=== PATIENT | female | born 1960 | race Caucasian/White ===

== ENCOUNTER 2024-11-21 16:11 | Inpatient (IN) | payer MEDICARE, OTHER ==
[~2024-11-21] VITALS: Ht 160 cm; Wt 58.2 kg
--- NOTE | 2024-11-21 16:22 | ELECTROCARDIOGRAPH REPORT ---
[facility] Test Date: 2024-11-21 Test Time: 16:20:10 Pat Name: KRISTINA MORRISON Department: [facility]-ER Patient ID: [id number] Room: Gender: F Beef Splitter: : 1960 Requested By: SIA ABRAHAM Order Number: [id number] Reading MD: Measurements Intervals [place] Rate: 75 P: 58 [place]: 196 QRS: 42 QRSD: 110 T: 60 QT: 423 QTc: 473 Interpretive Statements Sinus rhythm Abnormal R-wave progression, early transition Please click the below link to view image of tracing.
--- NOTE | 2024-11-21 16:28 | Physician Documentation ---
History of Present Illness ~ Chief Complaint: Weakness Stated Complaint: TRANSFER Time Seen by MD: 16:17 OK to notify your PCP?: Yes Source: patient, EMS, RN notes reviewed, EMS notes reviewed Mode of Arrival: EMS Exam Limitations: no limitations HPI Chief Complaint: Weakness, dizziness, hyponatremia Caveat: None Independent Historians: Paramedics History of Present Illness: Patient is a 64-year-old woman with Crohn's disease and prior ileostomy. Patient is transferred here from [facility] Emergency Department for severe hyponatremia, hypotension and acute kidney injury. Patient was seen three days ago for a fever at [facility] and had a reassuring CT scan at that time and was discharged home. Patient has had loose stool from her ileostomy. Patient denies any abdominal pain. Patient has not had any recurrent fevers for four days. Patient has been hypotensive with a blood pressure 87/51 per flight medics. Patient was not started on Levophed. Patient did receive at least 1 L of normal saline prior to getting labs for the hyponatremia. The the normal saline was discontinued and the patient was started on 3% saline at 100 an hour for 2 hours. That is now discontinued. Rep [facility] lab work will be obtained. Patient had hypokalemia with a potassium of 5.7 and that has corrected to 4.8 prior to arrival. Patient's sodium was 107 originally and was 110 prior to transfer. Patient has a creatinine of 8.4. Patient had gone into [facility] ER because she was feeling weak and dizzy and was unable to walk without falling. At this time does not feel dizzy but just feels fatigued and tired. No chest pain, no shortness a breath, no abdominal pain. Patient has had increased output and fluid from her ileostomy over the last two days. No vomiting. Patient denies any chest pain, no shortness a breath, no abdominal pain. Patient had a febrile illness about 5-7 days ago was seen at [facility] and no source was found. Patient has not been on antibiotics. She has not had a fever since. Patient does not have any abdominal pain. Patient's blood pressure normally runs around 110-120 systolic. Review of systems: All systems were reviewed and are negative except for what is indicated in the history of present illness. Past Medical History: Ulcerative colitis, COPD, Boyd's esophagus HLD, HTN, history of small-bowel obstruction, depression, sleep apnea, anxiety, bipolar illness Past Surgical History: Ileostomy Social History: No tobacco use, no alcohol use, no drug use Medications: Reviewed as documented Nursing Notes Allergies: Reviewed as documented in Nursing Notes Medication Reconciliation Allergies: Coded Allergies: codeine (Verified Allergy, Unknown, itchy, 11/21/24) Review of Systems All Other Systems at this time: Reviewed and Negative ROS Patient denies any other acute symptoms other than above. All other systems are negative Physical Exam Vital Signs: RN Vital Signs have been reviewed: Yes, Temperature: 98.0, Source: Oral, Heart Rate: 72, Respiratory Rate: 16, BP: 96/55, Pulse Oximetry: 97, Weight: 51.000 Oxygen Flow Rate: 2.0 Pulse Oximetry Reflects: adequate oxygenation Physical Exam General Appearance: No distress HEENT: Normal OP, moist oral mucosa, PERRL, EOMI Neck: supple, normal ROM, trachea midline Pulmonary: No respiratory distress, CTA, BS equal Cardiac: RRR, no murmur, rub or gallop, GI: nondistended, soft, nontender, normal bowel sounds, no guarding, no rebound Extremities: normal ROM, no swelling, non-tender Skin: intact, dry, warm, no rashes Neuro: AAOx3, speech is clear, no focal motor weakness Psych: normal affect, good eye contact, no apparent hallucination, normal speech Procedures Central Line Lumen: Quadruple Central Line Procedure: betadine prep, sterile drapes applied, sterile dressing applied Position: internal jugular (R) Anesthesia: Lidocaine Volume Anesthetic (ccs): 5 Complications: none Post Position: sutured, good blood return, position confirmed w/ CXR Tolerated Procedure Well?: yes, no complications Progress Results/Orders Results/Orders Orders - SIA ABRAHAM MD Chest,Single View (11/21/24 16:27) Monitor (11/21/24 16:15) Saline Lock (11/21/24 16:15) Oxygen (11/21/24 16:15) Hs Troponin I W Calculations (11/21/24 18:15) Hs Troponin I W Calculations (11/21/24 19:15) Page Hospitalist (11/21/24 16:34) Fill Out Med Reconciliation (11/21/24 16:34) Chest,Single View (11/21/24 18:11) Completed Orders - SIA ABRAHAM MD Chest,Single View (11/21/24 16:27) Cbc/Diff (11/21/24 16:15) PBNP (11/21/24 16:15) Electrocardiogram (11/21/24 16:15) Hs Troponin I W Calculations (11/21/24 16:15) CMP (11/21/24 16:17) Vital Signs 11/21/24 11/21/24 11/21/24 11/21/24 16:17 16:20 16:30 16:45 Temp 98.2 Pulse 77 72 69 Resp 15 13 11 11 B/P (MAP) 91/44 94/51 (65) 85/42 (56) Pulse Ox 96 96 95 O2 Flow Rate 0 0 0 11/21/24 11/21/24 11/21/24 11/21/24 17:00 17:15 17:30 17:45 Pulse 74 73 69 69 Resp 10 15 13 13 B/P (MAP) 98/48 (65) 80/49 (59) 84/46 (59) 96/47 (63) Pulse Ox 95 95 96 97 O2 Flow Rate 0 0 0 0 11/21/24 11/21/24 18:00 18:15 Pulse 68 71 Resp 11 12 B/P (MAP) 90/50 (63) 104/57 (73) Pulse Ox 98 97 O2 Flow Rate 0 0 Laboratory Tests Test 11/21/24 16:25 White Blood Count 8.2 Red Blood Count 4.12 L Hemoglobin 11.3 L Hematocrit 33.2 L Mean Corpuscular Volume 80.6 Mean Corpuscular Hemoglobin 27.5 Mean Corpuscular Hemoglobin Concent 34.1 Red Cell Distribution Width 16.6 H Platelet Count 233 Mean Platelet Volume 7.4 Neutrophils (%) (Auto) 87.3 H Lymphocytes (%) (Auto) 5.6 L Monocytes (%) (Auto) 7.0 Eosinophils (%) (Auto) 0 Basophils (%) (Auto) 0.1 Neutrophils # (Auto) 7.1 Lymphocytes # (Auto) 0.5 L Monocytes # (Auto) 0.6 Eosinophils # (Auto) 0.0 Basophils # (Auto) 0.0 CBC Comment Sodium Level 113 *L Potassium Level 4.9 Chloride Level 81 L Carbon Dioxide Level 13.1 *L Anion Gap 19 H Blood Urea Nitrogen 65 H Creatinine 6.16 H Estimated GFR/1.73 m2 7 BUN/Creatinine Ratio 10.6 Glucose Level 87 Calcium Level 7.2 L Total Bilirubin 0.4 Aspartate Amino Transf (AST/SGOT) 30 Alanine Aminotransferase (ALT/SGPT) 25 Alkaline Phosphatase 92 Troponin I High Sensitivity 5 Pro-B-Type Natriuretic Peptide 398 H Total Protein 6.8 Albumin 2.9 L Globulin 3.9 Albumin/Globulin Ratio 0.7 L Chemistry Comments Medical Decision Making Findings Differential diagnosis includes but is not limited to: Sepsis, dehydration, electrolyte abnormalities EKG independent interpretation: Performed at 4:20 p.m.. Normal sinus rhythm, heart rate 75, normal axis, normal ST segments Chest x-ray, single view, indication: Sepsis, hypotension Independent interpretation: CLEAR, NORMAL MEDIASTINUM, NORMAL CARDIAC SILHOUETTE. NO ACUTE CARDIOPULMONARY PROCESS. Laboratory data independent interpretation: CBC: Unremarkable, moderate anemia with a hemoglobin 11.3 CMP: Severe hyponatremia sodium 113, bicarb low 13.1, chloride low 81, anion gap 19, BUN 65, creatinine 6.16 Toxicology: Serology: Urinalysis: Emergency department course/medical decision-making: Patient presents with a severe hyponatremia, acute renal failure and hypotension. Hypertonic saline we will not be initiated at this time because her sodium has already increased six points from 107 to 113. Patient requires slower increase of sodium. Patient will require admission to the ICU. Patient understands her test results, treatment plan and need for admission. Patient now states that she does not have Crohn's but ulcerative colitis. Patient states that her blood pressure usually runs around 110-120 systolic. Consultation/communications: 4:56 p.m.: Pharmaceutical Engineer, Dr. Garza consulted. Departure Time of Disposition: 16:31 Admitted to Inpatient Unit: to contractor field hauling Admission Level of Care: Critcal Care Impression: Primary Impression: Hyponatremia Additional Impressions: Hyperkalemia Acute kidney failure Qualified Codes: N17.9 - Acute kidney failure, unspecified Condition: Guarded Education Educated: Patient Educated regarding: diagnosis, treatment Critical Care Note Total Time (mins): 45 Critical Care Note Critical conditions addressed for impending deterioration include: metabolic, renal, Associated risk factors involving deterioration include: hypotension, metabolic changes, dehydration, acidosis, The very real possibility of a deterioration of this patient's condition required the highest level of my preparedness for sudden, emergent intervention. I provided critical care services, which included medication orders, frequent reevaluations of the patient's condition and response to treatment, ordering and reviewing test results, and discussing the case with necessary consultants. Critical care time was exclusive of necessary procedure time. The critical care time associated with the care of the patient was 45 minutes. Signature Scribe Signature: No scribe Attestation: No scribe SIA ABRAHAM MD Nov 21, 2024 16:27
[2024-11-21 16:40] LABS: MEAN PLATELET VOLUME 7.4 FL (7.4-10.4); RED CELL DISTRIBUTION WIDTH 16.6 % (11.5-14.5)
[2024-11-21 17:00] LABS: CREATININE 6.16 MG/DL (0.40-0.90); PRO BRAIN NATRIURETIC PEPTIDE 398 PG/ML (0-125); eCRCL 8 ML/MIN; eGFR 7 ML/MIN
[2024-11-21 17:03] LABS: TOTAL CARBON DIOXIDE 13.1 MMOL/L (24-32)
--- NOTE | 2024-11-21 17:06 | RADIOLOGY REPORT ---
CHEST RADIOGRAPH Indication: CP Technique: DI CHEST,SINGLE VIEW COMPARISON: None FINDINGS: The cardiac silhouette is borderline enlarged. The lungs demonstrate bilateral patchy airspace opacit ies. The pulmonary vasculature is prominent. Small bilateral pleural effusions. There is no pneumotho rax. Cervical and thoracic neurostimulator leads. Postsurgical changes of the bilateral rotator inter gracy. IMPRESSION: Pulmonary vascular congestion and bilateral patchy airspace opacities. Small bilateral pleural effusions.
--- NOTE | 2024-11-21 17:20 | HISTORY AND PHYSICAL ---
History & Physical Providers to CC ~ History of Present Illness Allergies: Coded Allergies: codeine (Verified Allergy, Unknown, itchy, 11/21/24) Exam Vitals: Vital Signs Date Time Temp Pulse Resp B/P (MAP) Pulse Ox O2 Delivery O2 Flow Rate FiO2 11/21/24 16:20 13 11/21/24 16:17 98.2 77 96 0 Diagnostic Data Last Recorded Lab Results: 11/21/24 1625 11/21/24 1625 LOLLY ERAZO MD Nov 21, 2024 17:20
--- NOTE | 2024-11-21 17:36 | CONSULTATION REPORT ---
Consult Providers to CC ~ History of Present Illness Reason for Admit\Complaint: Hyponatremia acute renal failure status post fall History of Present Illness History of present illness patient is a pleasant 64-year-old female transferred here from [facility] for a higher level of care patient says she was in her usual state of health till about a week ago when she developed a fever of 103.1 last week she went to [facility] they could not find a cause for her fevers and they discharged her without any antibiotics. She thinks the workup was negative at that time. She did have fevers for about three days at that time. This resolved spontaneously. But she has had increased number of falls for the last two days. She is not sure why she has so much generalized weakness that she just crumpled to the floor. She says the quantity of stools in her ileostomy bag his increased 10 falls. But she is used to this recurrent diarrhea. Though she is not sure of the cause. But she has been diagnosed with ulcerative colitis and intussusception and had a ileostomy bag placed. She does not think she has had any recent fevers besides the ones from last week. She denies a cough she denies any other dysuria. Allergies: Coded Allergies: codeine (Verified Allergy, Unknown, itchy, 11/21/24) Past Medical History Past Medical History Past medical history significant for COPD ulcerative colitis intussusception pericardial effusion chronic low back pain Past surgical history she has had an ileostomy placed secondary to the ulcerative colitis and intussusception multiple hernia surgeries femoral inguinal she has had bilateral shoulder arthroscopic surgeries tubal ligation followed by a total hysterectomy colectomy Rectal surgery 3-4 incisional hernia surgeries a prolapse surgery Social history she smoked half a pack a day for more than 20 years but quit in 20 22 sees socially drinks 1-2 drinks a year uses marijuana regularly is lives with family Family history nothing of significance Allergies are to codeine ROS ROS Review of systems negative for all 10 systems reviewed ext of history of present illness Exam Vitals: Vital Signs Date Time Temp Pulse Resp B/P (MAP) Pulse Ox O2 Delivery O2 Flow Rate FiO2 11/21/24 17:30 69 13 84/46 (59) 96 0 11/21/24 16:17 98.2 General: Patient is alert and oriented times four in no acute distress HEENT normocephalic nontraumatic head PERRLA. EOMI. CVS first and second heart sounds are regular rate rhythm no murmurs gallops or rubs Respiratory system is clear to auscultate bilaterally no rales rhonchi crackles or wheezing Abdomen is soft ileostomy bag is full of liquidy stool well-healed scar over the midline Nontender nondistended bowel sounds are positive hyperactive Extremities no clubbing cyanosis or edema Neurological exam no focal deficits Diagnostic Data Last Recorded Lab Results: 11/21/24 1625 11/21/24 1625 Additional Plan Assessment and plan --Sepsis Panculture Patient recently had a fever of 103.1 about a week ago for type 3 days --hyponatremia Continue IV fluids continue to monitor sodium levels -hypotension Patient started on IV fluids Patient is started on Levophed -diarrhea-ileostomy bag -history of ulcerative Colitis -patient is started on DVT prophylaxis Patient is being managed in the ICU by patient attendant LOLLY ERAZO MD Nov 21, 2024 17:36
--- NOTE | 2024-11-21 18:41 | RADIOLOGY REPORT ---
CHEST RADIOGRAPH REASON FOR EXAM: post central line placement COMPARISON: DI CHEST,SINGLE VIEW on DOS: 11/21/24 TECHNIQUE: One view of the chest is provided FINDINGS: The cardiomediastinal silhouette is stable. There is a new right neck catheter with the tip projecting over the central aspect of the right brachiocephalic vein. Other lines and tubes are unch anged. There is similar appearance of patchy bilateral airspace disease. There is no large pleural e ffusion. The costophrenic sulci are excluded from view. IMPRESSION: New right neck catheter tip projects over the central aspect of the right brachiocephalic vein.
[2024-11-21] MEDS: NORepinephrine 8mg/ 250ml NS 250 ML IV ONE (18:52)
--- NOTE | 2024-11-21 19:08 | HISTORY AND PHYSICAL ---
History of Present Illness History of present illness 64 hold female who presented to the emergency department with a complaint of lightheadedness and recurrent falling for the past two days. The patient was notable for hypotension and hyponatremia at an outlying facility where the sodium was measured to be 107 and thus was transferred to us for higher level of care. The patient has received about 2 L of saline solution and her sodium has risen from 107 to 113. The patient is asymptomatic which makes me conclude that hyponatremia is chronic and not of an acute nature. She is also azotemic with a BUN and creatinine of 65/6.16. She has an anion gap of 19. The patient's blood pressure has been soft to low in the emergency department and therefore patient has been started on Levophed. Expected to stay > 48 hours Yes Reason for Visit: Pulmonary critical care consultation Chief complaint Lightheadedness and recurrent falling. Source: Patient, Medical Records, Other (ED physician) Past Medical History Past medical history Ulcerative colitis, COPD, Boyd's esophagus, hypertension, history of small- bowel obstruction, depression, sleep apnea, anxiety, bipolar disease, small pericardial effusion, chronic back pain Past Surgical History Surgical history Colostomy, bilateral rotator cuff surgery, hysterectomy, tubal ligation, tonsillectomy, lipoma resection, several herniorrhaphies starting in 1975 Past Family History Family history Noncontributory Past Social History Social history Drinks alcohol occasionally, quit cigarette smoking 1999, smokes marijuana. Medications Current medications Current Medications Norepinephrine Bitartrate 250 ml @ 10.909 mls/ hr [id number] ONCE IV Last administered on 11/21/24at 18:52; Start 11/21/24 at 18:30; Stop 11/22/24 at 17:25 Review of Systems Review of Systems Review of Systems As in history of present history and past medical history Allergies: Coded Allergies: codeine (Verified Allergy, Unknown, itchy, 11/21/24) Exam Vital signs Vital Signs Date Time Temp Pulse Resp B/P (MAP) Pulse Ox O2 Delivery O2 Flow Rate FiO2 11/21/24 18:52 92/52 11/21/24 18:15 71 12 104/57 (73) 97 0 11/21/24 18:00 68 11 90/50 (63) 98 0 11/21/24 17:45 69 13 96/47 (63) 97 0 11/21/24 17:30 69 13 84/46 (59) 96 0 11/21/24 17:15 73 15 80/49 (59) 95 0 11/21/24 17:00 74 10 98/48 (65) 95 0 11/21/24 16:45 69 11 85/42 (56) 95 0 11/21/24 16:30 72 11 94/51 (65) 96 0 11/21/24 16:20 13 11/21/24 16:17 98.2 77 15 91/44 96 0 Physical exam HEENT examination: N/C/80, PERRL Neck: Supple with no jugular venous distention and lymphadenopathy. Chest: Symmetric expansion bilaterally Pulmonary: Clear to auscultation bilaterally with no wheezing no rales or rhonchi. Abdomen: Soft nontender no organomegaly Etremities: No cyanosis clubbing edema. Laboratory Results Laboratory Tests 11/21/24 16:25 Chemistry Test 11/21/24 16:25 Albumin 2.9 G/DL (3.4-5.0) L Albumin/Globulin Ratio 0.7 (1.1-1.5) L Calcium Level 7.2 MG/DL (8.5-10.1) L Globulin 3.9 G/DL (2.7-4.3) Total Protein 6.8 G/DL (6.4-8.2) LFT Test 11/21/24 16:25 Alanine Aminotransferase (ALT/SGPT) 25 U/L (12-78) Alkaline Phosphatase 92 IU/L (46-116) Aspartate Amino Transf (AST/SGOT) 30 U/L (10-37) Total Bilirubin 0.4 MG/DL (0.1-1.0) Assessment/Plan Plan Asymptomatic hyponatremia: Sodium is increased from 107-113. Observe fluid restriction of 1200 mL per 24 hours. Hypotension: Patient has been started on Levophed. Titrating norepinephrine drip to a map of 65 mm of mercury or higher. Ulcerative colitis: She status post colostomy and colostomy is functioning well. Currently no issues. Azotemia: Maybe dehydrated. Baseline renal function unknown. Anion gap metabolic acidosis: Most likely due to renal failure. Lightheadedness: Due to hypotension that may have been caused by dehydration. Plan: 1200 cc fluid restriction per 24 hour Titrate norepinephrine drip to a map of at least 65 mmHg No further infusion with normal saline recommended at this moment. We have already reached the maximum increase of sodium by six mEq. We will reassess initiation of IV fluids tomorrow. Obtain renal ultrasound. Overall prognosis: Guarded Critical care time in excess of 35 minutes excluding time for procedures. VTE VTE Risk Score VTE Risk Score Reference Ranges: Score 0-1 = Low Risk (Aggressive mobilization; early ambulation; no VTE prophylaxis required) Score 2: Moderate Risk (Intermittent/Pneumatic Compression Device OR Lovenox/Heparin/Coumadin) Score 3-4: High Risk (Intermittent/Pneumatic Compression Device AND Lovenox/Heparin/Coumadin) Score > or = 5: Highest Risk (Intermittent/Pneumatic Compression Device AND Lovenox/Heparin/Coumadin) RAEANN DOUGLAS MD Nov 21, 2024 19:08
[2024-11-21] MEDS ORDERED: magnesium hydroxide 30ml (MOM) UD suspension PO PRN (19:20)
[2024-11-21] MEDS ORDERED: magnesium sulf-water 4G/100mL 100 ML IV PRN (19:20)
[2024-11-21] MEDS ORDERED: potassium Cl 40MEQ/1/2NS 520ml 520 ML IV PRN (19:20)
[2024-11-21] MEDS ORDERED: magnesium Cl slow-release 64mg tablet PO PRN (19:20)
[2024-11-21] MEDS ORDERED: potassium Cl 20 mEq SR tablet PO PRN ×2 (19:20)
[2024-11-21] MEDS ORDERED: mag hydrox/Alum hydrox/simeth 30ml oral suspension PO PRN (19:20)
[2024-11-21] MEDS ORDERED: magnesium sulf-water 2g/50mL 50 ML IV PRN (19:20)
[2024-11-21] MEDS: docusate sod 100mg capsule PO SCH (20:00)
[2024-11-21] MEDS: K and/or MAG REPLACEMENT MC SCH (20:00)
[2024-11-21] MEDS: acetaminophen 1,000mg/100ml IV 100 ML IV STA (20:02)
[2024-11-21] MEDS ORDERED: ONDA-104 PO (22:19)
[2024-11-21] MEDS ORDERED: LORA2ORA5 PO (22:19)
[2024-11-21] MEDS ORDERED: LISI20TA28 PO (22:19)
[2024-11-21] MEDS ORDERED: OMEP40CA21 PO (22:19)
[2024-11-21] MEDS ORDERED: OXYB5TAB21 PO (22:19)
[2024-11-21] MEDS ORDERED: BACL20TA PO (22:19)
[2024-11-21] MEDS ORDERED: METO5TAB85 PO (22:19)
[2024-11-21] MEDS ORDERED: METH-797 PO (22:19)
[2024-11-21] MEDS ORDERED: PROM25TA14 PO (22:19)
[2024-11-21] MEDS ORDERED: SUMA25TA35 PO (22:19)
[2024-11-21] MEDS ORDERED: PRAV40TA17 PO (22:19)
[2024-11-21] MEDS ORDERED: ALB0.5UD IH (22:19)
[2024-11-21] MEDS ORDERED: VALA500T41 PO (22:19)
[2024-11-21] MEDS ORDERED: BUPR-122 PO (22:19)
[2024-11-21] MEDS ORDERED: GABA-1555 PO (22:19)
[2024-11-21 23:00] VITALS: BP 115/58; PULSE 73; RESP 14; O2SAT 97
[2024-11-22] VITALS (25 sets, daily range): BP systolic 83–118; BP diastolic 45–67; PULSE 62–87; RESP 9–16; O2SAT 95–98
[2024-11-22 02:27] LABS: MEAN PLATELET VOLUME 7.4 FL (7.4-10.4); RED CELL DISTRIBUTION WIDTH 17.1 % (11.5-14.5)
[2024-11-22 02:41] LABS: CREATININE 4.61 MG/DL (0.40-0.90); TOTAL CARBON DIOXIDE 15.8 MMOL/L (24-32); eCRCL 10 ML/MIN; eGFR 10 ML/MIN
[2024-11-22 02:52] LABS: NEUTROPHILS % (MANUAL) 56 % (42-75)
[2024-11-22 02:53] LABS: BANDS% (MANUAL) 15 % (0-10); EOSINOPHILS % (MANUAL) 1 % (0-6); LYMPHOCYTES % (MANUAL) 17 % (21-51); MONOCYTES % (MANUAL) 11 % (2-12); PLATELET ESTIMATE NORMAL
[2024-11-22] MEDS: NORepinephrine 8mg/ 250ml NS 250 ML IV SCH (08:00)
[2024-11-22 09:17] LABS: CREATININE 3.59 MG/DL (0.40-0.90); PHOSPHORUS 5.8 MG/DL (2.3-4.5); eCRCL 13 ML/MIN; eGFR 13 ML/MIN
[2024-11-22 09:45] LABS: TOTAL CARBON DIOXIDE 14.8 MMOL/L (24-32)
--- NOTE | 2024-11-22 10:48 | Visit Coding Note ---
Date of Service: Nov 22, 2024 Billing Provider: LOLLY ERAZO MD Common Visit Codes: 23856-[id number] INP/OBS CARE (HIGH) Inpatient Consultation Codes: [id number] CONSULT <45MIN LOLLY ERAZO MD Nov 22, 2024 10:48
[2024-11-22] MEDS ORDERED: METO5SOL22 PO (11:04)
[2024-11-22] MEDS ORDERED: LORA2TAB96 PO (11:04)
[2024-11-22] MEDS: pantoprazole 40mg Tablet.DR PO SCH (14:51)
[2024-11-22] MEDS: heparin, porcine 5000 units/ml vial SQ SCH (14:54)
--- NOTE | 2024-11-22 15:09 | RADIOLOGY REPORT ---
RENAL ULTRASOUND REASON FOR EXAM: ELEVATED CREATININE COMPARISON: None TECHNIQUE: Real-time sector scans in multiple planes were obtained over the kidneys, ureters and alma dder. FINDINGS: The left kidney measures 10.9 x 4.5 x 6.0 cm. The right kidney measures 10.4 x 5.3 x 5.7 cm. No mass is identified. There is no hydronephrosis. The urinary bladder is collapsed about a Rosa catheter balloon. The ureteral jets are not visualized on this exam. IMPRESSION: Normal sonographic appearance of the kidneys. The urinary bladder is collapsed about a Rosa catheter balloon and is not well evaluated on this heber dy.
[2024-11-22 15:10] LABS: CREATININE 2.89 MG/DL (0.40-0.90); TOTAL CARBON DIOXIDE 19.7 MMOL/L (24-32); eCRCL 17 ML/MIN; eGFR 17 ML/MIN
--- NOTE | 2024-11-22 17:36 | PROGRESS NOTE- Residence ---
Progress Note - Resident Providers to CC Resident Creating Document: JACE ECHAVARRIA CC: RAEANN DOUGLAS MD ~ Antibiotic Timeout Antibiotic Ordered?: Yes Subjective Patient was seen and examined at bedside in CICU. She is alert awake and does not have any significant complaints at this time. Objective Vital Signs Date Time Temp Pulse Resp B/P (MAP) Pulse Ox O2 Delivery O2 Flow Rate FiO2 11/22/24 17:00 98.1 73 10 101/62 (75) 95 Room Air 11/22/24 08:00 0.0 Result Diagram: 11/22/24 0216 11/22/24 1450 General: awake, alert oriented to place, time, and person HEENT: Central line in place. No pallor present, no icterus Neck: No masses and tenderness Resp: Lungs clear to auscultation bilaterally. Chest: Normal expansion Cardiovascular: regular rate and rhythm, normal S1 and S2 without murmur, rub or gallop Abdomen: Ileostomy tube in place, abdomen is soft and nontender, no organomegaly, no guarding and rigidity, bowel sounds present Neuro: No focal weakness in the upper and lower limb muscles. Cranial nerves intact Extremities: No cyanosis,clubbing or edema Skin: Warm and Dry. Plan Plan Renal: LAURIE on CKD, likely pre-renal 2/2 vasomotor nephropathy Asymptomatic hyponatremia, improved Azotemia, improved Anion gap metabolic acidosis Sodium is increased to 120 now Creatinine improved to 4.6 today. Unknown baseline creatinine Bicarb has improved Will DC fluid restriction Kidney US ordered Start D5W at 100 cc/hour Continue monitoring sodium q.6 CVS: Hypovolemic shock Severe dehydration On Levophed. Titrating norepinephrine drip to a map of 65 mm of mercury or higher. Fluids as above Ulcerative colitis: She status post ileostomy which is functioning well. Hyponatremia is likely due to losses through ileostomy Low-sodium, low-potassium, no residue diet Code Status: Full code GI prophylaxis: Protonix Nutrition: Low-sodium, low-potassium, no residue diet Prognosis: Guarded Disposition: Continue care in CICU Jace Cox MD Internal Medicine Resident PGY-2 Date of Service: Nov 22, 2024 Billing Provider: RAEANN DOUGLAS MD, LEONARDO LUIS Nov 22, 2024 17:36
[2024-11-23] VITALS (17 sets, daily range): BP systolic 89–151; BP diastolic 45–83; PULSE 57–86; RESP 9–20; TEMP 97–97.4; O2SAT 94–100
[2024-11-23] MEDS: ondansetron/PF 4mg/2ml inj IV PRN (00:07)
[2024-11-23] MEDS: metoclopramide 5 mg/ml inj IV ONE (01:47)
[2024-11-23 02:40] LABS: MEAN PLATELET VOLUME 7.5 FL (7.4-10.4); RED CELL DISTRIBUTION WIDTH 17.2 % (11.5-14.5)
[2024-11-23 02:56] LABS: CREATININE 1.58 MG/DL (0.40-0.90); PHOSPHORUS 3.5 MG/DL (2.3-4.5); TOTAL CARBON DIOXIDE 20.6 MMOL/L (24-32); eCRCL 31 ML/MIN; eGFR 33 ML/MIN
[2024-11-23] MEDS: midodrine 5mg tablet PO SCH (07:55)
--- NOTE | 2024-11-23 10:36 | PROGRESS NOTE ---
Daily Progress Note Providers to CC ~ Antibiotic Timeout Antibiotic Ordered?: Yes Subjective Chief complaint none patient states she is feeling a little bit stronger and a little bit better she just would like to get out of here if she can nothing against the ICU the staff is wonderful but just wants to get out of the ICU Review of systems negative for all 10 systems reviewed Objective Vital Signs Date Time Temp Pulse Resp B/P (MAP) Pulse Ox O2 Delivery O2 Flow Rate FiO2 11/23/24 10:00 69 12 109/57 (74) 97 Room Air 11/23/24 08:00 0.0 11/23/24 01:00 98.2 Result Diagram: 11/23/24 0205 11/23/24 0836 Patient is alert and oriented x3 in no acute distress lying down comfortably speaking in full sentences HEENT normocephalic nontraumatic head PERRLA CVS first and second heart sounds are regular rate rhythm no murmurs gallops or rubs Respiratory system is clear to auscultate bilaterally there is no rales rhonchi crackles or wheezing Abdomen is soft bowel sounds are positive nontender nondistended Extremities no clubbing cyanosis or edema Problem\Assessment\Plan Assessment and plan --Sepsis Panculture Patient recently had a fever of 103.1 about a week ago for type 3 days Continue IV antibiotics to cover C diff with p.o. vanco and Zosyn to cover colitis --hyponatremia sodium is up to 116 Continue IV fluids continue to monitor sodium levels -hypotension Patient started on IV fluids Patient is started on Levophed -diarrhea-ileostomy bag -history of ulcerative Colitis Patient has a ileostomy with large loose watery stools in it -GI prophylaxis with Protonix -patient is started on DVT prophylaxis -patient is a full code per her choice Patient is being managed in the ICU by brickmason supervisor Date of Service: Nov 23, 2024 Billing Provider: LOLLY ERAZO MD Common Visit Codes: [id number] INP/OBS CARE(HIGH) LOLLY ERAZO MD Nov 23, 2024 10:36
--- NOTE | 2024-11-23 10:59 | RADIOLOGY REPORT ---
EXAM: DI HAND,LIMITED (AP/LAT) CLINICAL INDICATION: s/p fall TECHNIQUE: DI HAND,LIMITED (AP/LAT) 3v Comparison: None FINDINGS/IMPRESSION: There is no evidence of acute fracture or dislocation. Bony cystic changes involving the scaphoid and lunate from advanced degenerative changes. The alignment is anatomical. There is no radiopaque foreign body.
--- NOTE | 2024-11-23 16:09 | PROGRESS NOTE- Residence ---
Progress Note - Resident Providers to CC Resident Creating Document: JACE ECHAVARRIA CC: RAEANN DOUGLAS MD ~ Antibiotic Timeout Antibiotic Ordered?: Yes Subjective Patient was seen and examined at bedside in CICU. She is alert awake and does not have any significant complaints at this time. Objective Vital Signs Date Time Temp Pulse Resp B/P (MAP) Pulse Ox O2 Delivery O2 Flow Rate FiO2 11/23/24 10:33 110/71 11/23/24 10:00 69 12 97 Room Air 11/23/24 08:00 0.0 11/23/24 01:00 98.2 Result Diagram: 11/23/24 0205 11/23/24 0836 General: awake, alert oriented to place, time, and person HEENT: Central line in place. No pallor present, no icterus Neck: No masses and tenderness Resp: Lungs clear to auscultation bilaterally. Chest: Normal expansion Cardiovascular: regular rate and rhythm, normal S1 and S2 without murmur, rub or gallop Abdomen: Ileostomy tube in place, abdomen is soft and nontender, no organomegaly, no guarding and rigidity, bowel sounds present Neuro: No focal weakness in the upper and lower limb muscles. Cranial nerves intact Extremities: No cyanosis,clubbing or edema Skin: Warm and Dry. Plan Plan Renal: LAURIE on CKD, likely pre-renal 2/2 vasomotor nephropathy, improving Asymptomatic hyponatremia, improved Azotemia, improved Anion gap metabolic acidosis Sodium is relatively stable Creatinine improved to 1.5 today. Unknown baseline creatinine Kidney ultrasound is unremarkable Bicarb has improved Continue D5W at 100 cc/hour Continue monitoring sodium q.6 CVS: Hypovolemic shock, resolved Severe dehydration, resolved Off pressors IV fluids as above Ulcerative colitis: She status post ileostomy which is functioning well. Hyponatremia is likely due to losses through ileostomy Low-sodium, low-potassium, no residue diet Code Status: Full code GI prophylaxis: Protonix Nutrition: Low-sodium, low-potassium, no residue diet Prognosis: Guarded Disposition: Will downgrade to PCU today Jace Cox MD Internal Medicine Resident PGY-2 Date of Service: Nov 23, 2024 Billing Provider: RAEANN DOUGLAS MD, LEONARDO LUIS Nov 23, 2024 16:09
[2024-11-23] MEDS ORDERED: albuterol 2.5 MG/3 ML nebule NEB PRN (20:25)
[2024-11-23] MEDS: buPROPion 100mg tablet PO SCH (20:49)
[2024-11-24] VITALS (8 sets, daily range): BP systolic 92–102; BP diastolic 50–66; PULSE 68–95; RESP 11–16; TEMP 96.7–99; O2SAT 95–100
[2024-11-24] MEDS ORDERED: LORAZEPAM PO SCH
[2024-11-24 08:39] LABS: MEAN PLATELET VOLUME 7.0 FL (7.4-10.4); RED CELL DISTRIBUTION WIDTH 17.0 % (11.5-14.5)
[2024-11-24 08:55] LABS: CREATININE 1.23 MG/DL (0.40-0.90); PHOSPHORUS 3.1 MG/DL (2.3-4.5); TOTAL CARBON DIOXIDE 20.1 MMOL/L (24-32); eCRCL 39 ML/MIN; eGFR 44 ML/MIN
[2024-11-24] MEDS: normal saline 1000ml 1,000 ML IV SCH (09:14)
--- NOTE | 2024-11-24 14:00 | PROGRESS NOTE ---
Daily Progress Note Providers to CC ~ Antibiotic Timeout Antibiotic Ordered?: Yes Subjective Chief complaint I feel a little bit better in the morning today but now I am again very lightheaded just do not feel right a little dizzy unable to really get my thoughts straight Review of systems negative for all 10 systems reviewed Objective Vital Signs Date Time Temp Pulse Resp B/P (MAP) Pulse Ox O2 Delivery O2 Flow Rate FiO2 11/24/24 08:00 16 100 Room Air 11/24/24 06:30 77 11/24/24 06:00 99.0 92/65 (74) 11/23/24 08:00 0.0 Result Diagram: 11/24/24 0815 11/24/24 0815 Patient is alert and oriented x3 in no acute distress lying down comfortably speaking in full sentences HEENT normocephalic nontraumatic head PERRLA CVS first and second heart sounds are regular rate rhythm no murmurs gallops or rubs Respiratory system is clear to auscultate bilaterally there is no rales rhonchi crackles or wheezing Abdomen is soft bowel sounds are positive nontender nondistended Extremities no clubbing cyanosis or edema Problem\Assessment\Plan Assessment and plan --Sepsis Panculture Patient recently had a fever of 103.1 about a week ago for type 3 days Continue IV antibiotics to cover C diff with p.o. vanco and Zosyn to cover colitis --hyponatremia sodium is up to 116 Continue IV fluids continue to monitor sodium levels -acute renal failure resolved -hypotension resolved Continue normal saline -diarrhea-ileostomy bag -history of ulcerative Colitis Patient has a ileostomy with large loose watery stools in it -GI prophylaxis with Protonix -patient is started on DVT prophylaxis -patient is a full code per her choice Patient is being managed in the ICU by leading firefighter Date of Service: Nov 24, 2024 Billing Provider: LOLLY ERAZO MD Common Visit Codes: [id number] INP/OBS CARE(HIGH) LOLLY ERAZO MD Nov 24, 2024 14:00
[2024-11-25] VITALS (8 sets, daily range): BP systolic 95–108; BP diastolic 45–58; PULSE 57–92; RESP 13–21; TEMP 96.7–98.4; O2SAT 97–99
[2024-11-25 03:48] LABS: MEAN PLATELET VOLUME 7.0 FL (7.4-10.4); RED CELL DISTRIBUTION WIDTH 17.3 % (11.5-14.5)
[2024-11-25 03:59] LABS: CREATININE 0.94 MG/DL (0.40-0.90); PHOSPHORUS 3.1 MG/DL (2.3-4.5); TOTAL CARBON DIOXIDE 19.5 MMOL/L (24-32); eCRCL 51 ML/MIN; eGFR 60 ML/MIN
[2024-11-25 11:07] LABS: LEUKOCYTE ESTERASE ,URINE LARGE (Neg); NITRITES, URINE POSITIVE (Neg); OCCULT BLOOD,URINE LARGE (Neg)
[2024-11-25 11:09] LABS: UA COLLECTION TYPE NON-SPECIFIED
[2024-11-25 11:17] LABS: SQUAMOUS EPITHELIAL CELL,UR FEW /LPF (FEW); WBC CLUMPS,URINE MODERATE /HPF (NEGATIVE)
[2024-11-25] MEDS: CefTRIAXone/D5W-Rocephin 1gm 50 ML IV SCH (12:00)
--- NOTE | 2024-11-25 13:04 | PROGRESS NOTE ---
Daily Progress Note Providers to CC ~ Antibiotic Timeout Antibiotic Ordered?: Yes Subjective Chief complaint none Review of systems negative for all 10 systems reviewed Objective Vital Signs Date Time Temp Pulse Resp B/P (MAP) Pulse Ox O2 Delivery O2 Flow Rate FiO2 11/25/24 11:00 98.4 92 21 95/53 (67) 98 Room Air 11/25/24 08:00 0.0 Result Diagram: 11/25/24 0320 11/25/24 0848 Patient is alert and oriented x3 in no acute distress lying down comfortably speaking in full sentences HEENT normocephalic nontraumatic head PERRLA CVS first and second heart sounds are regular rate rhythm no murmurs gallops or rubs Respiratory system is clear to auscultate bilaterally there is no rales rhonchi crackles or wheezing Abdomen is soft bowel sounds are positive nontender nondistended Extremities no clubbing cyanosis or edema Problem\Assessment\Plan Assessment and plan --Sepsis Panculture Patient recently had a fever of 103.1 about a week ago for type 3 days Continue IV antibiotics to cover C diff with p.o. vanco and Zosyn to cover colitis --hyponatremia sodium is up to 127 Continue IV fluids continue to monitor sodium levels -acute renal failure resolved -hypotension resolved Patient started on IV fluids Stopped -diarrhea-ileostomy bag -history of ulcerative Colitis Patient has a ileostomy with large loose watery stools in it -GI prophylaxis with Protonix -patient is started on DVT prophylaxis -patient is a full code per her choice Patient is being managed in the ICU by clinical administrator Date of Service: Nov 25, 2024 Billing Provider: LOLLY ERAZO MD Common Visit Codes: [id number] INP/OBS CARE(HIGH) LOLLY ERAZO MD Nov 25, 2024 13:04
[2024-11-26] VITALS (8 sets, daily range): BP systolic 85–141; BP diastolic 44–68; PULSE 9–61; RESP 13–17; TEMP 97.6–98.6; O2SAT 95–99
[2024-11-26 02:22] LABS: MEAN PLATELET VOLUME 6.8 FL (7.4-10.4); RED CELL DISTRIBUTION WIDTH 17.4 % (11.5-14.5)
[2024-11-26 02:40] LABS: CREATININE 0.91 MG/DL (0.40-0.90); PHOSPHORUS 3.0 MG/DL (2.3-4.5); TOTAL CARBON DIOXIDE 22.7 MMOL/L (24-32); eCRCL 53 ML/MIN; eGFR 63 ML/MIN
--- NOTE | 2024-11-26 11:22 | PROGRESS NOTE ---
Daily Progress Note Providers to CC ~ Antibiotic Timeout Antibiotic Ordered?: Yes Subjective Chief complaint none she says overall I am feeling better and want to go home Objective Vital Signs Date Time Temp Pulse Resp B/P (MAP) Pulse Ox O2 Delivery O2 Flow Rate FiO2 11/26/24 08:00 17 98 Room Air 0.0 11/26/24 06:30 63 11/26/24 06:00 97.6 100/44 (62) Result Diagram: 11/26/24 0200 11/26/24 0928 Patient is alert and oriented x3 in no acute distress lying down comfortably speaking in full sentences HEENT normocephalic nontraumatic head PERRLA CVS first and second heart sounds are regular rate rhythm no murmurs gallops or rubs Respiratory system is clear to auscultate bilaterally there is no rales rhonchi crackles or wheezing Abdomen is soft bowel sounds are positive nontender nondistended Extremities no clubbing cyanosis or edema Problem\Assessment\Plan Assessment and plan --Sepsis Panculture Patient recently had a fever of 103.1 about a week ago for type 3 days FEVER HAD RESOLVED PRIOR TO ADMISSION NO SOURCE OF INFECTION NOTED AT THAT TIME -UTI CULTURES ARE POSITIVE FOR GRAM-NEGATIVE RODS PATIENT IS STARTED ON IV CEFTRIAXONE YESTERDAY AND I ADDED CIPRO TODAY LEUKOCYTOSIS IMPROVING --hyponatremia sodium is up to 132 Continue IV fluids continue to monitor sodium levels -acute renal failure resolved -hypotension resolved Continue normal saline -diarrhea-ileostomy bag RESOLVED -history of ulcerative Colitis Patient has a ileostomy with large loose watery stools in it -GI prophylaxis with Protonix -patient is started on DVT prophylaxis -patient is a full code per her choice Patient is being managed in the ICU by gelatin powder mixer Date of Service: Nov 26, 2024 Billing Provider: LOLLY ERAZO MD Common Visit Codes: [id number] INP/OBS CARE(HIGH) LOLLY ERAZO MD Nov 26, 2024 11:22
[2024-11-26] MEDS: ciprofloxacin lact 400MG/200ML 200 ML IV SCH (16:08)
[2024-11-27 06:00] VITALS: BP 99/55; PULSE 63; RESP 16; TEMP 98.1; O2SAT 95
[2024-11-27 06:13] LABS: MEAN PLATELET VOLUME 6.7 FL (7.4-10.4); RED CELL DISTRIBUTION WIDTH 17.4 % (11.5-14.5)
[2024-11-27 06:40] LABS: CREATININE 0.60 MG/DL (0.40-0.90); PHOSPHORUS 3.3 MG/DL (2.3-4.5); TOTAL CARBON DIOXIDE 24.1 MMOL/L (24-32); eCRCL 80 ML/MIN; eGFR > 90 ML/MIN
[2024-11-27 07:35] VITALS: RESP 16; O2SAT 97
[2024-11-27 07:46] LABS: BANDS% (MANUAL) 4.0 % (0-10); EOSINOPHILS % (MANUAL) 1.0 % (0-6); LYMPHOCYTES % (MANUAL) 13.0 % (21-51); METAMYLEOCYTES% (MANUAL) 1.0 % (0-0); MONOCYTES % (MANUAL) 1.0 % (2-12); NEUTROPHILS % (MANUAL) 80.0 % (42-75); PLATELET ESTIMATE NORMAL
[2024-11-27] MEDS ORDERED: CIPR-259 PO (08:44)
--- NOTE | 2024-11-27 08:50 | DISCHARGE SUMMARY ---
Discharge Summary Providers to CC ~ Discharge Summary Admission Diagnosis: HYPONATREMIA, RECURRENT FALLING Hospital Course DATE OF ADMISSION: 11/21/2024 DATE OF DISCHARGE: 11/27/2024 Discharge Diagnosis\Comment: Dehydration hyponatremia sepsis UTI acute renal failure rate Operations\Procedures: None Consultants: Dr. Garza Complications: None Condition on DC: Stable New Medications: Ciprofloxacin HCl (Cipro) 500 Mg Tablet 1 TAB PO Q12H for 10 Days, #20 TAB Continued Medications: Albuterol Sulfate Nebs* (Proventil Nebs*) 2.5 Mg/0.5 Ml Vial.neb 2.5 MG IH Q4H PRN for SOB or wheezing, EACH Bupropion HCl (Bupropion HCl) 100 Mg Tablet 2 TAB PO DAILY for 30 Days, #60 TAB 0 Refills Gabapentin (Gabapentin) 800 Mg Tablet 1 TAB PO Q8H for 30 Days, #90 TAB 0 Refills Lisinopril (Lisinopril) 20 Mg Tablet 1 TAB PO DAILY for 30 Days, #30 TAB Lorazepam (Lorazepam) 2 Mg/Ml Oral.conc 0.25 ML PO Q4H for 10 Days, #15 ML 0 Refills Lorazepam (Ativan) 2 Mg Tablet 4 MG PO DAILY Methocarbamol (Methocarbamol) 500 Mg Tablet 1 TAB PO Q8H for 30 Days, #90 TAB 0 Refills Metoclopramide HCl (Metoclopramide HCl) 5 Mg/5 Ml Solution 5 ML PO TID PRN for nausea/vomiting Omeprazole (Prilosec) 40 Mg Capsule 1 CAP PO DAILY for 30 Days, #30 CAP Ondansetron HCl (Ondansetron HCl) 8 Mg Tablet 1 TAB PO Q8H for nausea/vomiting for 10 Days, #30 TAB 0 Refills Oxybutynin Chloride (Oxybutynin Chloride) 5 Mg Tablet 1 TAB PO Q12H for urinary discomfort for 30 Days, #60 TAB 0 Refills Pravastatin Sodium (Pravastatin Sodium) 40 Mg Tablet 1 TAB PO DAILY for 30 Days, #30 TAB 0 Refills Promethazine HCl (Promethazine HCl) 25 Mg Tablet 1 TAB PO Q6H PRN PRN for nausea/vomiting for 7 Days, #28 TAB Sumatriptan Succinate* (Imitrex Tab*) 25 Mg Tablet 1 TAB PO DAILY PRN for migraine headaches Valacyclovir HCl (Valacyclovir) 500 Mg Tablet 1 TAB PO DAILY PRN for COLD SORES for 30 Days, #30 TAB 0 Refills Discharge Summary: History of present illness 64 hold female who presented to the emergency department with a complaint of lightheadedness and recurrent falling for the past two days. The patient was notable for hypotension and hyponatremia at an outlying facility where the sodium was measured to be 107 and thus was transferred to us for higher level of care. The patient has received about 2 L of saline solution and her sodium has risen from 107 to 113. The patient is asymptomatic which makes me conclude that hyponatremia is chronic and not of an acute nature. She is also azotemic with a BUN and creatinine of 65/6.16. She has an anion gap of 19. The patient's blood pressure has been soft to low in the emergency department and therefore patient has been started on Levophed. Hospital course patient is a pleasant 64-year-old female that was admitted secondary to frequent falls and lightheadedness patient's in the ER was noted to be hypotensive and hyponatremic was admitted to the ICU under the care of the sql etl developer. Patient was initially started on Levophed blood pressures improved with IV fluids as did the sodium levels. Patient's kidney function is back to normal. Patient was noted to have leukocytosis secondary to a UTI and pancultured cultures are positive for Proteus and E coli. Patient was initially started on ceftriaxone and then added Cipro her leukocytosis is improving and down [id number]. She is afebrile her sodium is back to normal limits she is being discharged home on oral Cipro. Advised for close follow up with PCP in a week. *Problems/Diagnosis: (1) Hyponatremia Status: Acute (2) Acute kidney failure Status: Acute Total Time Spent on D/C: > 30 Minutes Date of Service: Nov 27, 2024 Billing Provider: LOLLY ERAZO MD Common Visit Codes: [id number] DISCH DAY >30min Problem Qualifiers (1) Acute kidney failure: Qualified Codes: N17.9 - Acute kidney failure, unspecified LOLLY ERAZO MD Nov 27, 2024 08:50
--- NOTE | 2024-11-27 09:07 | ELECTROCARDIOGRAPH REPORT ---
[facility] Test Date: 2024-11-26 Test Time: 19:15:51 Pat Name: KRISTINA MORRISON Department: ORTHO/NEURO Patient ID: [id number] Room: ORTHO [address] A Gender: F [employer] Worker: : 1960 Requested By: KAROL SUAZO Order Number: [id number] Reading MD: Dr. LOREE Aviles Measurements Intervals [place] Rate: 126 P: 0 MS: 0 QRS: 29 QRSD: 110 T: 0 QT: 295 QTc: 428 Interpretive Statements Age not entered, assumed to be 52 years old for purpose of ECG interpretation NSR, baseline artefact Ventricular tachycardia, unsustained Posterior infarct, old Abnormal lateral Q waves Nonspecific repol abnormality, diffuse leads Artifact in lead(s) I,II,III,aVR,aVL,aVF,V1,V2,V3,V4,V5,V6 and baseline wander in lead(s) V6 Electronically Signed On 11-27-2024 13:56:[address] LOREE Aviles Please click the below link to view image of tracing.
[2024-11-27 10:00] VITALS: BP 111/52; PULSE 68; RESP 16; TEMP 98.1; O2SAT 96
== END 2024-11-27 13:02 | disposition home or self-care (01) | DRG 871 ==
LOC: ER 16:12 → ED HOLD 19:23 → CICU 2S 22:47 → PCU 3S 11-23 16:35 → ORTHO 4S 11-26 17:41
PROVIDERS: ADMIT Internal Medicine Critical Care Medicine; ATTEND Internal Medicine Critical Care Medicine
DX: A41.9 Sepsis, unspecified organism (principal); N17.0 Acute kidney failure with tubular necrosis; R57.1 Hypovolemic shock; E87.1 Hypo-osmolality and hyponatremia; K50.90 Crohn's disease, unspecified, without complications; E87.20 Acidosis, unspecified; N39.0 Urinary tract infection, site not specified; K22.70 Barrett's esophagus without dysplasia; B96.20 Unspecified Escherichia coli [E. coli] as the cause of diseases classified elsewhere; E87.6 Hypokalemia; F31.9 Bipolar disorder, unspecified; J44.9 Chronic obstructive pulmonary disease, unspecified; E78.5 Hyperlipidemia, unspecified; G47.30 Sleep apnea, unspecified; E86.0 Dehydration; I12.9 Hypertensive chronic kidney disease with stage 1 through stage 4 chronic kidney disease, or unspecified chronic kidney disease; N18.9 Chronic kidney disease, unspecified; M54.50 Low back pain, unspecified; Z93.3 Colostomy status; Z87.891 Personal history of nicotine dependence; Z90.710 Acquired absence of both cervix and uterus; Z88.5 Allergy status to narcotic agent; Z93.2 Ileostomy status
CPT/HCPCS: 36415; 36556; 71045; 73120; 76770; 80048; 80053; 81001; 82948; 83605; 83735; 83880; 84100; 84295; 84484; 85007; 85025; 87040; 87077; 87081; 87088; 87186; 93005; 96365; 96375; 97116; 97161; 97530; 99291; A4398; A4421; A4649; A6258; A6402; A6449; C1751; G0378; J0131; J0696; J0744; J1644; J2405; J2765; J7030; J7040; J7070; J7120; J7121